=== PATIENT | male | born 1945 | race Caucasian/White ===

== ENCOUNTER 2017-09-14 05:02 | Emergency (ER) | payer OTHER, MEDICARE, BC ==
[~2017-09-14] VITALS: Ht 182.9 cm; Wt 109.8 kg
[~2017-09-14 05:02] MED LIST: ACET325 PO; ASPI81CH; DULO30 PO; LOVA40 PO; METF500C PO; OSTEO BI-FLEX1 EAC2 PO; POTCHL10ER PO; TOPI100 PO
[2017-09-14] MEDS ORDERED: POTCIT10 PO (06:08)
[2017-09-14] MEDS ORDERED: OSTEO BI-FLEX1 EAC2 PO (06:09)
[2017-09-14 06:20] LABS: BASOPHILS ABSOLUTE AUTO 0.05 K/mm3 (0.00-0.23); BASOPHILS PERCENT AUTO 1 % (0-2); EOSINOPHILS ABSOLUTE AUTO 0.08 K/mm3 (0.00-0.68); EOSINOPHILS PERCENT AUTO 1 % (0-6); Hematocrit 43.2 % (37.0-53.0); Hemoglobin 14.3 g/dL (13.5-17.5); IMMATURE GRAN ABSOLUTE AUTO 0.09 K/mm3 (0.00-0.10); IMMATURE GRAN PERCENT AUTO 1 % (0-1); LYMPHOCYTES ABSOLUTE AUTO 1.51 K/mm3 (0.84-5.20); LYMPHOCYTES PERCENT AUTO 15 % (21-46); MONOCYTES ABSOLUTE AUTO 0.64 K/mm3 (0.16-1.47); MONOCYTES PERCENT AUTO 6 % (4-13); Mean Corpuscular HGB 31.4 pg (26.0-34.0); Mean Corpuscular HGB Conc 33.1 g/dL (31.5-36.5); Mean Corpuscular Volume 95 fL (80-100); NEUTROPHILS ABSOLUTE AUTO 7.74 K/mm3 (1.96-9.15); NEUTROPHILS PERCENT AUTO 77 % (41-73); Platelet Count 239 K/mm3 (150-400); RDW Coefficient Variation 12.7 % (11.7-14.2); Red Blood Cell Count 4.55 M/mm3 (4.30-5.90); White Blood Cell Count 10.11 K/mm3 (4.00-11.30)
[2017-09-14 06:39] LABS: Alanine Aminotransfer (ALT/SGP 27 U/L (12-78); Albumin/Globulin Ratio 1.1 (0.8-1.8); Alk Phos 113 U/L (50-136); Anion Gap 10 mmol/L (6-16); Aspartate Aminotrans (AST/SGOT 21 U/L (12-37); Bilirubin, Total 0.4 mg/dL (0.1-1.0); Blood Urea Nitrogen 18 mg/dL (8-24); Bun/Creatinine Ratio 19.7 (12.0-20.0); CO2, Blood 19 mmol/L (21-32); Calcium, Blood 8.6 mg/dL (8.5-10.1); Chloride, Blood 109 mmol/L (98-108); Creatinine, Blood 0.91 mg/dL (0.60-1.20); Globulin, Blood 3.6 g/dL (2.2-4.0); Glomerular Filtration Rate >60 (60-); Glucose, Blood 175 mg/dL (70-99); Potassium, Blood 4.1 mmol/L (3.5-5.5); Sodium, Blood 138 mmol/L (136-145); Total Protein, Blood 7.6 g/dL (6.4-8.2)
[2017-09-14 06:55] LABS: Source, Urine Catheter
[2017-09-14 06:59] LABS: Bilirubin, Urine Neg (Neg); Blood, Urine 5+ (Neg); Glucose Qualitative, Urine 1+ (Neg); Ketones, Urine 1+ (Neg); Leukocyte Esterase, Urine 2+ (Neg); Nitrite, Urine Pos (Neg); Protein, Urine 3+ (Neg); Specific Gravity, Urine 1.015 (1.003-1.022); Urobilinogen, Urine NORM (Normal); pH, Urine 6.5 (5.0-8.0)
[2017-09-14 07:10] LABS: Appearance, Urine Cloudy (Clear); Color, Urine Brown (P-Yellow)
[2017-09-14 07:11] LABS: Red Blood Cells, Urine TNTC /hpf (0-2)
[2017-09-14 07:13] LABS: Bacteria Rare /hpf; Squamous Epithelial Cells Rare /hpf (Few)
[2017-09-14] MEDS ORDERED: Pyridium200 MG PO (08:00)
[2017-09-14] MEDS ORDERED: LEVFLO500 PO (08:00)
[2018-06-01] MEDS ORDERED: IRON DAILY (20:22)
[2018-06-01] MEDS ORDERED: TAMS.4ER PO (20:22)
[2018-06-01] MEDS ORDERED: MULTIVITAMIN (20:22)
== END 2017-09-14 08:20 | disposition home or self-care (01) ==
LOC: ER 05:02
PROVIDERS: Emergency Medicine
DX: N20.0 Calculus of kidney (principal); N21.0 Calculus in bladder; N39.0 Urinary tract infection, site not specified; E11.9 Type 2 diabetes mellitus without complications; G40.909 Epilepsy, unspecified, not intractable, without status epilepticus; Z87.891 Personal history of nicotine dependence; Z79.899 Other long term (current) drug therapy; Z79.84 Long term (current) use of oral hypoglycemic drugs
CPT/HCPCS: 36415; 51702; 51798; 80053; 81001; 85025; 87086; 96374; 96375; 99283; J1170; J2405

== ENCOUNTER 2019-09-29 12:50 | Day surgery (SDC) | payer MEDICARE, BC ==
[~2019-09-29] VITALS: Ht 185.4 cm; Wt 100.8 kg
[~2019-09-29 12:50] MED LIST changes: +Aspirin EC81 MG PO; +Crestor40 MG PO; +Hair, Skin & N1 EACH PO; +IRON DAILY; +LEVFLO500 PO; +MULTIVITAMIN; +POTCIT10 PO; +Pyridium200 MG PO; +TAMS.4ER PO
--- NOTE | 2019-09-29 15:24 | NUR ---
09/29/19 1524 PANCHO RAZO PATIENT UP IN CHAIR, TOLERATING PO INTAKE. VSS ON RA. DENIES PAIN/NAUSEA. DISCHARGE INSTRUCTIONS REVIEWED WITH PATIENT. PATIENT VERBALIZES UNDERSTANDING. COPY GIVEN TO PATIENT TO TAKE HOME. PATIENT STATES POST-PROCEDURE RIDE HOME HAS BEEN ARRANGED WITH FAMILY.
== END 2019-09-29 15:32 | disposition home or self-care (01) ==
LOC: ORSCSDS 12:50
PROVIDERS: Surgery
PROC: 0HB4XZX Excision of Neck Skin, External Approach, Diagnostic (ICD-10-PCS; principal; 2019-09-29 14:00)
PROC: 0HQ4XZZ Repair Neck Skin, External Approach (ICD-10-PCS; principal; 2019-09-29 14:00)
DX: M79.5 Residual foreign body in soft tissue (principal); L72.0 Epidermal cyst; E11.9 Type 2 diabetes mellitus without complications; E78.5 Hyperlipidemia, unspecified; G40.909 Epilepsy, unspecified, not intractable, without status epilepticus; F43.10 Post-traumatic stress disorder, unspecified; Z79.84 Long term (current) use of oral hypoglycemic drugs; Z79.899 Other long term (current) drug therapy; Z79.82 Long term (current) use of aspirin
CPT/HCPCS: 82947; 88304; J7120

== ENCOUNTER 2021-01-02 21:38 | Emergency (ER) | payer MEDICARE, BC ==
[~2021-01-02] VITALS: Ht 185.4 cm; Wt 97.5 kg
== END 2021-01-03 00:17 | disposition left against medical advice (07) ==
LOC: ER 21:38
DX: T63.301A Toxic effect of unspecified spider venom, accidental (unintentional), initial encounter (principal); Z53.21 Procedure and treatment not carried out due to patient leaving prior to being seen by health care provider
CPT/HCPCS: 99281

== ENCOUNTER 2021-08-09 17:49 | Emergency (ER) | payer MEDICARE, BC ==
[~2021-08-09] VITALS: Ht 180.3 cm; Wt 99.3 kg
[2021-08-09 18:40] LABS: Source, Urine Clean Catch
[2021-08-09 18:46] LABS: Appearance, Urine Clear (Clear); Bilirubin, Urine Neg (Neg); Blood, Urine 5+ (Neg); Color, Urine Yellow (P-Yellow); Glucose Qualitative, Urine 1+ (Neg); Ketones, Urine Neg (Neg); Leukocyte Esterase, Urine 1+ (Neg); Nitrite, Urine Neg (Neg); Protein, Urine 2+ (Neg); Urobilinogen, Urine 1+ (Normal)
[2021-08-09 19:02] LABS: Amorphous Light (0-Heavy); Bacteria Few /hpf; Mucus Light (0-Heavy); Red Blood Cells, Urine 25-50 /hpf (0-2); Squamous Epithelial Cells Few /hpf (Few)
[2021-08-09 19:15] LABS: BASOPHILS ABSOLUTE AUTO 0.06 K/mm3 (0.00-0.23); BASOPHILS PERCENT AUTO 1 % (0-2); EOSINOPHILS ABSOLUTE AUTO 0.21 K/mm3 (0.00-0.68); EOSINOPHILS PERCENT AUTO 3 % (0-6); Hematocrit 39.8 % (37.0-53.0); Hemoglobin 13.5 g/dL (13.5-17.5); IMMATURE GRAN ABSOLUTE AUTO 0.05 K/mm3 (0.00-0.10); IMMATURE GRAN PERCENT AUTO 1 % (0-1); LYMPHOCYTES ABSOLUTE AUTO 1.91 K/mm3 (0.84-5.20); LYMPHOCYTES PERCENT AUTO 24 % (21-46); MONOCYTES ABSOLUTE AUTO 0.65 K/mm3 (0.16-1.47); MONOCYTES PERCENT AUTO 8 % (4-13); Mean Corpuscular HGB 31.9 pg (26.0-34.0); Mean Corpuscular HGB Conc 33.9 g/dL (31.5-36.5); Mean Corpuscular Volume 94 fL (80-100); Mean Platelet Volume 10.8 fL (9.1-12.4); NEUTROPHILS ABSOLUTE AUTO 4.95 K/mm3 (1.96-9.15); NEUTROPHILS PERCENT AUTO 63 % (41-73); Platelet Count 220 K/mm3 (150-400); RDW Coefficient Variation 12.1 % (11.7-14.2); Red Blood Cell Count 4.23 M/mm3 (4.30-5.90); White Blood Cell Count 7.83 K/mm3 (4.00-11.30)
[2021-08-09 19:31] LABS: Alanine Aminotransfer (ALT/SGP 19 U/L (12-78); Albumin, Blood 3.6 g/dL (3.4-5.0); Albumin/Globulin Ratio 1.2 (0.8-1.8); Alk Phos 80 U/L (50-136); Anion Gap 6 mmol/L (6-16); Aspartate Aminotrans (AST/SGOT 13 U/L (12-37); Bilirubin, Total 0.3 mg/dL (0.1-1.0); Blood Urea Nitrogen 16 mg/dL (8-24); Bun/Creatinine Ratio 16.4 (12.0-20.0); CO2, Blood 21 mmol/L (21-32); Calcium, Blood 8.4 mg/dL (8.5-10.1); Chloride, Blood 111 mmol/L (98-108); Creatinine, Blood 0.98 mg/dL (0.60-1.20); Glomerular Filtration Rate >60 (60-); Glucose, Blood 200 mg/dL (70-99); Potassium, Blood 3.9 mmol/L (3.5-5.5); Sodium, Blood 138 mmol/L (136-145); Total Protein, Blood 6.6 g/dL (6.4-8.2)
[2021-08-09] MEDS ORDERED: CEPH500 PO (22:38)
== END 2021-08-09 22:53 | disposition home or self-care (01) ==
LOC: ER 17:49
PROVIDERS: Physician Assistant
DX: N39.0 Urinary tract infection, site not specified (principal); E11.9 Type 2 diabetes mellitus without complications; G40.909 Epilepsy, unspecified, not intractable, without status epilepticus; Z79.899 Other long term (current) drug therapy; Z79.84 Long term (current) use of oral hypoglycemic drugs
CPT/HCPCS: 36415; 51798; 74176; 80053; 81001; 85025; 87086; 99284-25; A9270

== ENCOUNTER 2021-09-06 06:06 | Inpatient (IN) | payer MEDICARE, BC ==
[~2021-09-06] VITALS: Ht 185.4 cm; Wt 91.9 kg
[~2021-09-06 06:06] MED LIST changes: +CEPH500 PO
--- NOTE | 2021-09-06 15:00 | NUR ---
PT. TO ROOM #223 FROM PACU AT 1400, VIA GURNEY. 5 ASSIST WITH SLIDER TO BED, TOLERATE WELL. EPIDURAL SITE IS CLEAN, DRY, INTACT AND IN PLACE. ABDOMINAL PICCO MIDLINE DRSG. IS C,D,&I. STERI STRIPS ON ABDOMEN C,D,&I. PATIENT VERBALIZE HIS PAIN IS WELL CONTROLLED AND AT THIS TIME RATES IT A 3. TURNS EASLIY IN BED WITH SOME PROMPTING. WIGGINS DRAINING HEIDI URINE , BLOOD TINGED. OXYGEN PER NC AT 4L UPON ARRIVAL, HOWEVER AT THIS TIME SATS ARE UP TO 99%, OXYGEN TURNED DOWN TO 3L FOR NOW. INSTRUCTED PT. ON USE OF CALL LIGHT AND TO CALL FOR ASSIST WITH ANY CONCERNS, COMPLAINTS, NEEDS AND TO GET OOB WITH HELP ONLY. PATIENT VERBALIZE UNDERSTANDING. CALL LIGHT IN REACH. PATIENT IS ALERT AND ORIENTED X 4, HARD OF HEARING, POOR EYESIGHT NOTED. PLEASANT AFFECT. LR INFUSING.
--- NOTE | 2021-09-06 17:12 | NUR ---
DR. TORRE IN TO SEE PATIENT. PATIENT AWAKE AND ALERT, DENIES PAIN. EPIDURAL INTACT , DRSG. CLEAN AND DRY ON BACK. DENIES NUMBNESS OR TINGLING IN LE'S. VSS. PATIENT TAKING PO WATER, IVF DC'D. MATTHIEUO GIVEN AND INSTRUCTED PT. TO TAKE IT SLOW. PATIENT ATE IT VERY FAST. REST OF TRAY HELD AT THIS TIME. INCENTIVE SPIROMETER GIVEN AND EXPLAINED TO PT. HOW TO USE, AND WHY. VERBALIZE UNDERSTANDING.
--- NOTE | 2021-09-06 18:49 | NUR ---
pt. c/o increase pain after taking broth. Instructed patient to sip slowly and patient did drink it fast. The rest of his tray removed, Anathesia in and pt. epidural increased to 10ml/hr( 50mg) per Anesthesia. Patient resting at this time without complaint.
--- NOTE | 2021-09-06 21:40 | NUR ---
PT C/O LLE BEING HEAVY AND DIFFICULT TO PICK IT UP. WIGGLES TOES AND DORSI AND PLANTAR FLEX AND PULSES INTACT.DISCUSSED WITH PT THE AFFECTS OF INCREASING EPIDURAL AND REASSURED.PT RATES ABD PAIN LEVEL 8 AND VERB HAS BEEN AT LEVEL 8 FOR HOURS. PT REPORTED PREVIOUS LEVEL 3 AND LOWER TO OTHER STAFF. PT HAS HX TBI AND HAS BEEN FORGETFULAT TIMES AND REQUIRES FREQUENT REDIRECT AND EDUCATION REGARDING EPIDURAL AND PAIN CONTROL. SITE CLEAR AND INTACT. I CALLED ANESTHESIA AND DISCUSSED ABOVE.DR INSTRUCTED ME TO REASSURE PT REGARDING LEG AND GAVE FURTHER ORDERS FOR PAIN CONTROL.
[2021-09-07 06:13] LABS: BASOPHILS ABSOLUTE AUTO 0.03 K/mm3 (0.00-0.23); BASOPHILS PERCENT AUTO 0 % (0-2); EOSINOPHILS ABSOLUTE AUTO 0.01 K/mm3 (0.00-0.68); EOSINOPHILS PERCENT AUTO 0 % (0-6); Hematocrit 37.1 % (37.0-53.0); Hemoglobin 12.1 g/dL (13.5-17.5); IMMATURE GRAN ABSOLUTE AUTO 0.05 K/mm3 (0.00-0.10); IMMATURE GRAN PERCENT AUTO 1 % (0-1); LYMPHOCYTES PERCENT AUTO 11 % (21-46); MONOCYTES ABSOLUTE AUTO 1.17 K/mm3 (0.16-1.47); MONOCYTES PERCENT AUTO 11 % (4-13); Mean Corpuscular HGB 31.4 pg (26.0-34.0); Mean Corpuscular HGB Conc 32.6 g/dL (31.5-36.5); Mean Corpuscular Volume 96 fL (80-100); Mean Platelet Volume 10.7 fL (9.1-12.4); NEUTROPHILS ABSOLUTE AUTO 8.49 K/mm3 (1.96-9.15); NEUTROPHILS PERCENT AUTO 77 % (41-73); Platelet Count 219 K/mm3 (150-400); RDW Coefficient Variation 12.5 % (11.7-14.2); RDW Standard Deviation 43.6 fL (35.1-46.3); Red Blood Cell Count 3.85 M/mm3 (4.30-5.90); White Blood Cell Count 10.95 K/mm3 (4.00-11.30)
[2021-09-07 06:26] LABS: Anion Gap 8 mmol/L (6-16); Blood Urea Nitrogen 10 mg/dL (8-24); Bun/Creatinine Ratio 12.3 (12.0-20.0); CO2, Blood 20 mmol/L (21-32); Calcium, Blood 7.7 mg/dL (8.5-10.1); Chloride, Blood 111 mmol/L (98-108); Creatinine, Blood 0.81 mg/dL (0.60-1.20); Glomerular Filtration Rate >60 (60-); Glucose, Blood 190 mg/dL (70-99); Potassium, Blood 3.4 mmol/L (3.5-5.5); Sodium, Blood 139 mmol/L (136-145)
--- NOTE | 2021-09-07 08:16 | NUR ---
SUMMARY PT RECEIVED TORADOL AND MORPHINE 2 MG IV X 1 TONIGHT WITH REPORTED GOOD RELIEF OF PAIN. PT STATE PLEASED HE WAS ABLE TO SLEEP.[place] INCLUDING IMPROVED LIFTING OF LLE. PULSES REMAIN INTACT. EPIDURAL SITE WITH SCANT SPOT OF BLEED, BUT UNCHANGED.DSNG INTACT.EPIDURAL CKS NOTE HOURLY PT WITH FULL SENSATION EXCEPT THE HEAVYNESS TO LLE ,BUT DENIES ACTUAL N/T.PT ABLE TO DISTINGUISH BETWEEN COOL AND WARM. PT ASSISTS FOR REPOSITIONING IN BED.CDB.TAKING SMALL AMNTS PO. LR AT 75/HR WITH INFUSIONS HELD FOR UNASYN DOSE INCOMPATIBLE. 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
--- NOTE | 2021-09-07 17:06 | NUR ---
SHIFT SUMMARY: PATIENT STATES PAIN LEVEL IS A 2/10 AND TOLERABLE WITH EPIDURAL AT 60MG/HR. DRSG. ON BACK IS SECURE, CLEAN DRY AND INTACT. PICCO DRSG. ON ABDOMEN CLEAN AND DRY. TOLERATING FLUIDS WELL, DENIES NAUSEA OR DISCOMFORT. C/O LEFT THIGH BEING NUMB. DR. TORRE IN TO SEE PT. AT THIS TIME, PLAN FOR EPIDURAL OUT ON FRIDAY. DR. TORRE TO ADVANCE DIET TO FULL. DENIES PASSING FLATUS.
--- NOTE | 2021-09-08 04:12 | NUR ---
0400 NOTED EPIDURAL LINE DISCONNECTED, DRESSING INTACT VSS, DENIES PAIN BUT FEELS UNCOMFORTABLE IN BED, REPOSITIONED. ANESTHESIOLOGIST NOTIFIED, WILL BE IN TO SEE PT THIS AM. EPIDURAL STOPPED AT THIS TIME.
--- NOTE | 2021-09-08 05:57 | NUR ---
PATIENT CURRENTLY UPSET THAT LEFT THIGH HAS BEEN NUMB FOR THREE DAYS AND STATED IT WAS NOT EXPLAINED TO HIM THAT THIS WOULD HAPPEN. ALSO UPSET HE CAN'T GET UP AND GO THE BATHROOM IF HE WANTS. ABLE TO WIGGLE TOES AND MOVE BILATERAL FEET. EXPLAINED TO PATIENT POSSIBLE SIDE EFFECTS OF EPIDURAL. PATIENT APPEARS UNSATISFIED BUT VERBALIZED UNDERSTANDING AND STATED OK WE WILL SEE.
--- NOTE | 2021-09-08 06:45 | NUR ---
Patient stated he currently has sensation to left thigh and is currently moving leg around.
--- NOTE | 2021-09-08 16:21 | NUR ---
SHIFT SUMMARY PT A&OX4, VSS/RA, [place], CBGS AC/HS, SOTO, COVERAGE PER EMAR. POD2 HEMICOLECTOMY, 3 STERISTRIPS C/I, MIDLINE DAVID C/D/I; REPORT BELCHING, DENIES FLATUS; PT REP FULL SENSATION TO BLE AFTER EPIDURAL REMOVAL. RICARDO PO FULL LIQUID DIET. WIGGINS REMOVED, AWAITING POST VOID. PAIN MANAGED WELL WITH TYLENOL AND TORADOL. AMBULATING SBA/FWW/GB TO BRP/HALLWAY/BED, UP TO CHAIR T/O SHIFT. WILL REPORT TO ONCOMING NOC RN.
--- NOTE | 2021-09-09 06:09 | NUR ---
SHIFT SUMMARY: PT. ALERT & ORIENTED, DENIED ANY PAIN. REPORTS HE VOIDED AT THE BATHROOOM AT THE BEGINNING OF THE SHIFT BUT HE SAID HE FLUSHED IT. BLADDER SCAN DONE 2 HRS. LATER WITH RESULT OF 122 ML. PT. VOIDED IN THE BATHROOM 2 MORE TIMES AFTER THAT & WERE NOT FLUSHED. ADVISED TO USE THE URINAL SO TO MEASURE THE AMOUNT BUT PT. PREFERRED TO WALK TO THE BATHROOM. NOTED BURPING, NOT PASSING GAS PER PT. DRINKING WELL. NO ACUTE CHANGES NOTED.
--- NOTE | 2021-09-09 15:46 | NUR ---
SHIFT SUMMARY A&O X4, CBG AC/HS, COVERAGE PER EMAR, VSS/RA. POD3 HEMICOLECTOMY, [place] INCISION W/DAVID, CDI, X3 LAP SITES W/STERI STRIPS, CDI. PT REPORTS FREQUENT BELCHING AND SOME FLATUS. ABDOMEN MILDY DISTENDED. BM EARLY THIS MORNING, NO BOWEL ACTIVITY SINCE. BOWEL SOUNDS REMAIN HYPOACTIVE. VOIDING WELL. ZOFRAN GIVEN X1, TOLERATING FULL LIQUID PO AT THIS TIME. AMBULATING, BRP, & UP TO CHAIR WELL W/FWW & GB. PAIN MANAGED W/ TYLENOL AND TORADOL. WILL REPORT TO ONCOMING RN.
--- NOTE | 2021-09-09 23:55 | NUR ---
2333 NOTIFIED MD OF THIS PT'S COMPLAINTS OF NON STOP HICCUPS & THAT PT. REQUESTED FOR A MEDICINE, PER MD " LET IT BE, NO MEDICINE FOR THAT' & TOLD ME THAT BECAUSE OF THIS PT'S SURGERY HICCUPS COULD HAPPEN. PT. NOTIIFED OF MD'S ANSWER.
--- NOTE | 2021-09-10 00:02 | NUR ---
RE: PREVIOUS NOTE, IT WAS DR. TORRE WHO WAS NOTIFIED ABOUT PT'S COMPLAINTS OF HICCUPS.
--- NOTE | 2021-09-10 04:03 | NUR ---
SHIFT SUMMARY: PT. HAD HICCUPS THATWOKE HIM UP BEFORE MIDNIGHT, NOTIFIED DR. JOHNSON, NO MEDICATIONS ORDERED. PT.THEN STAYED AT THE RECLINER CHAIR THROUGHOUT THE SHIFT. NO OTHER COMPLAINTS & NO ACUTE CHANGES NOTED. REPORTS THAT HE WAS PASSING SOME GAS. NEEDS ATTENDED TO.
--- NOTE | 2021-09-10 06:46 | NUR ---
The patient has given this promotion writer permission to be his student nurse for the day.
--- NOTE | 2021-09-10 14:52 | NUR ---
PATIENT DISCHARGED HOME. DC INSTUCTIONS GIVEN AND VERBLAIZED UNDERSTANDING.
--- NOTE | 2021-09-10 17:32 | NUR ---
PATIENT CURRENTLY SITTING UP IN CHAIR AT THIS TIME EATING JELLO, HE INSISTED ON TRYING IT. PATIENT WAS MADE NPO WITH ICE CHIPS THIS AM DUE TO PROJECTILE VOMITING BILE COLOR EMESIS, LARGE AMOUNT NOTED. PATIENT ABDOMEN WAS HARD AND TENDER BEFORE VOMITING AND SOFT AFTER. PATIENT HAD JUST TAKEN HIS MORNING MEDS WITH WATER. NOTIFIED DR TORRE, PLACED PATIENT BACK TO NPO STATUS WITH ICE CHIPS. ALSO DR TORRE ORDERED SOME REGLAN FOR HIM AND THAT MED WAS GIVEN. AND SEEMED TO BE EFFECTIVE. PATIENT WAS MEDICATED WITH ZOFRAN TODAY WELL. PATIENT HAD A BM THAT WAS BROWISH RED IN COLOR. PATIENT HAS NO COMPLAINTS OF PAIN OTHER THAN WHEN HE HICCUPS IT IS PAINFUL. HE DENIES NEED FOR PAIN MEDS. PATIENT HAS TOLERATED ICE CHIPS ALL DAY WITH NO VOMITING. ABDOMEN IS STILL SOFT, BOWEL SOUNDS SEEM TO BE MORE ACTIVE THAN THIS AM. PATIENT STATES HE IS FEELILNG BETTER. WILL CONTINUE TO MONITOR.
--- NOTE | 2021-09-11 03:33 | NUR ---
SHIFT SUMMARY: PT. TOMAS & ORIENTED, DENIES N/V, HAD 2 BM'S. REFUSED HIS EVENING MEDS HE SAID HE WILL JUST VOMIT THEM OUT IF HE TAKES THEM. AMBULATES INDEPENDENTLY IN THE ROOM, ADVISED TO CALL FOR ANY NEED & TO HAVE SOMEBODY WITH HIM WHEN AMBULATING & TO USE A WALKER & GAITBELT FOR SAFETY BUT PT. INSISTED THAT HE CAN DO IT BY HIMSELF & SAID " i WILL IF I HAVE TO". PROVIDED 2 MEDIUM CUPS OF ICE PER PTS. REQUEST. DENIES PAIN, NOTED WITH HICCUPS A FEW TIMES. NO ACUTE CHANGES UP TO THIS MOMENT, WILL CONTINUE TO MONITOR.
--- NOTE | 2021-09-11 18:25 | NUR ---
PATIENT CURRENTLY SITTING UP IN CHAIR. NOT SIGNS OR SYMPTOMS ACUTE DISTRESS NOTED. CALL LIGHT AND WATER IN EASY REACH. ABLE TO MAKE NEEDS AND WANTS KNOWN. NO NAUSEA OR VOMITING TO DAY. ADVANCED DIET TO FULL LIQUIDS. TOLERATING WELL. PLAN IS TO DC TOMORROW HOME WITH . WILL MONITOR.
--- NOTE | 2021-09-12 00:24 | NUR ---
SHIFT SUMMARY: PT. AOX4, COMPLAINTS OF HEADACHE EARLY ON SHIFT, MEDICATED PER EMAR. VOIDING WELL & HAD BM X2, IDEPENDENTLY AMBULATING TO THE BATHROOM. NOTED SOME HICCUPS, NO COMPLAINTS, STATED HE IS DOING FINE. REMINDED TO CALL FOR ANY NEED & DON'T FALL. NO ACUT CHANGES NOTED, WILL CONTINUE TO MONITOR.
--- NOTE | 2021-09-12 08:19 | NUR ---
DISCHARGE INSTUCTIONS GIVEN TO PATIENT AT THIS TIME. WHEN TAKING HIM OUT THIS NURSE WITH GO OVER DISCHARGE INSTUCTIONS WITH PATIENTS WELL PER HIS REQUEST. PATIENT VERBALIZED UNDERSTANDING OF DC INSTRUCTIONS. IV REMOVED. PATIENT REFUSED BLOOD SUGAR CHECK AND AM MEDS, HE SAID HE WOULD TAKE HIS MEDS WHEN HE GOT HOME. NO SIGNS OR SYMPTOMS ACUTE DISTRESS NOTED. HICCUPS NOTED. NO COMPLAINTS OF PAIN VOICED. AWAITING ARRIVAL OF PATIENTS .
== END 2021-09-12 08:23 | disposition home or self-care (01) | DRG 331 ==
LOC: SURS 06:06 → PRE IP 07:30 → BC 07:30 → SURS 14:00
PROVIDERS: ADMIT Surgery
PROC: 0DBU4ZZ Excision of Omentum, Percutaneous Endoscopic Approach (ICD-10-PCS; 2021-09-06)
PROC: 0DTF4ZZ Resection of Right Large Intestine, Percutaneous Endoscopic Approach (ICD-10-PCS; principal; 2021-09-06 07:30)
DX: C18.0 Malignant neoplasm of cecum (principal); N40.0 Benign prostatic hyperplasia without lower urinary tract symptoms; F32.A Depression, unspecified; H91.90 Unspecified hearing loss, unspecified ear; E78.5 Hyperlipidemia, unspecified; E66.9 Obesity, unspecified; E11.9 Type 2 diabetes mellitus without complications; F43.10 Post-traumatic stress disorder, unspecified; G40.909 Epilepsy, unspecified, not intractable, without status epilepticus; Z53.29 Procedure and treatment not carried out because of patient's decision for other reasons; Z68.28 Body mass index [BMI] 28.0-28.9, adult; Z86.010 Personal history of colon polyps; Z87.442 Personal history of urinary calculi; Z87.820 Personal history of traumatic brain injury; Z90.79 Acquired absence of other genital organ(s); Z98.890 Other specified postprocedural states; Z79.84 Long term (current) use of oral hypoglycemic drugs; Z79.899 Other long term (current) drug therapy
CPT/HCPCS: 36415; 80048; 82947; 85025; 88309; A9270; J0295; J1100; J1650; J1815; J1885; J2250; J2270; J2405; J2704; J2710; J2765; J3010; J7050; J7120; U0003

== ENCOUNTER → 2022-10-09 | Outpatient (CLI) | payer MEDICARE, BC ==
[2022-10-09 09:20] LABS: BASOPHILS ABSOLUTE AUTO 0.05 K/mm3 (0.00-0.23); BASOPHILS PERCENT AUTO 1 % (0-2); EOSINOPHILS ABSOLUTE AUTO 0.15 K/mm3 (0.00-0.68); EOSINOPHILS PERCENT AUTO 2 % (0-6); Hematocrit 43.5 % (37.0-53.0); Hemoglobin 14.6 g/dL (13.5-17.5); IMMATURE GRAN ABSOLUTE AUTO 0.04 K/mm3 (0.00-0.10); IMMATURE GRAN PERCENT AUTO 1 % (0-1); LYMPHOCYTES ABSOLUTE AUTO 1.56 K/mm3 (0.84-5.20); LYMPHOCYTES PERCENT AUTO 25 % (21-46); MONOCYTES ABSOLUTE AUTO 0.52 K/mm3 (0.16-1.47); MONOCYTES PERCENT AUTO 8 % (4-13); Mean Corpuscular HGB 32.8 pg (26.0-34.0); Mean Corpuscular HGB Conc 33.6 g/dL (31.5-36.5); Mean Corpuscular Volume 98 fL (80-100); Mean Platelet Volume 9.9 fL (9.1-12.4); NEUTROPHILS ABSOLUTE AUTO 4.04 K/mm3 (1.96-9.15); NEUTROPHILS PERCENT AUTO 64 % (41-73); Platelet Count 201 K/mm3 (150-400); RDW Coefficient Variation 12.2 % (11.7-14.2); RDW Standard Deviation 44.1 fL (35.1-46.3); Red Blood Cell Count 4.45 M/mm3 (4.30-5.90); White Blood Cell Count 6.36 K/mm3 (4.00-11.30)
[2022-10-09 09:51] LABS: Albumin, Blood 4.3 g/dL (3.4-5.0); Albumin/Globulin Ratio 1.4 (0.8-1.8); Bilirubin, Total 0.4 mg/dL (0.1-1.0); Bun/Creatinine Ratio 14.9 (12.0-20.0); Calcium, Blood 9.3 mg/dL (8.5-10.1); Creatinine, Blood 0.94 mg/dL (0.60-1.20); Potassium, Blood 4.2 mmol/L (3.5-5.5); Total Protein, Blood 7.3 g/dL (6.4-8.2)
== END | disposition home or self-care (01) ==
LOC: LAB SHORT 08:57 → LAB FUT 12-27 08:45
PROVIDERS: Internal Medicine Hematology & Oncology
DX: C18.0 Malignant neoplasm of cecum (principal)
CPT/HCPCS: 36415; 80053; 82378; 85025